=== PATIENT | female | born 1935 | race Caucasian/White ===

== ENCOUNTER 2021-07-01 13:06 | Outpatient (CLI) | payer MEDICARE ==
[~2021-07-01 13:06] MED LIST: B.AN1CAP PO; BIMA2.5D4 EACHEYE; CA C1TAB58 PO; CYAN1TAB41 PO; FERR325T28 PO; FURO40TA4 PO; IBUP-1573 PO; LEVO25TA50 PO; LISI20TA28 PO; METO50TA7 PO; NORCO10T PO; TIM0.5OS LEFTEYE
== END 2021-07-01 23:59 | disposition home or self-care (01) ==
LOC: RAD 13:06
PROVIDERS: ATTEND Internal Medicine
DX: K22.5 Diverticulum of esophagus, acquired (principal); R13.14 Dysphagia, pharyngoesophageal phase; K21.9 Gastro-esophageal reflux disease without esophagitis
CPT/HCPCS: 74230